=== PATIENT | male | born 2000 | race Caucasian/White ===

== ENCOUNTER 2020-03-09 15:26 | Emergency (ER) | payer MEDICAID ==
[~2020-03-09] VITALS: Ht 180.3 cm; Wt 63.6 kg
[2020-03-09 15:43] VITALS: BP 140/76
== END 2020-03-09 16:14 | disposition home or self-care (01) ==
LOC: ER 15:27
DX: B34.9 Viral infection, unspecified (principal); R11.2 Nausea with vomiting, unspecified; R50.9 Fever, unspecified
CPT/HCPCS: 99281; 99282

== ENCOUNTER 2021-02-06 09:43 | Emergency (ER) | payer MEDICAID ==
[~2021-02-06] VITALS: Ht 180.3 cm; Wt 61.4 kg
[2021-02-06 09:57] VITALS: BP 116/79
== END 2021-02-06 14:02 | disposition home or self-care (01) ==
LOC: ER 09:44
DX: U07.1 COVID-19 (principal); R09.89 Other specified symptoms and signs involving the circulatory and respiratory systems; R09.81 Nasal congestion; R05 Cough; R50.9 Fever, unspecified; F17.200 Nicotine dependence, unspecified, uncomplicated; Z72.89 Other problems related to lifestyle
CPT/HCPCS: 87635; 99283; C9803

== ENCOUNTER 2021-10-03 10:16 | Emergency (ER) | payer MEDICAID ==
[~2021-10-03] VITALS: Ht 180.3 cm; Wt 63.6 kg
--- NOTE | 2021-10-03 11:38 | NUR ---
dressing applied to suture removal site lt hand
== END 2021-10-03 12:01 | disposition home or self-care (01) ==
LOC: ER 10:17
DX: S41.112D Laceration without foreign body of left upper arm, subsequent encounter (principal); Z48.00 Encounter for change or removal of nonsurgical wound dressing; X58.XXXD Exposure to other specified factors, subsequent encounter
CPT/HCPCS: 99281

== ENCOUNTER 2025-03-24 16:17 | Emergency (ER) | payer MEDICAID ==
[~2025-03-24] VITALS: Ht 185.4 cm; Wt 70.0 kg
[2025-03-24 16:21] VITALS: BP 122/92; PULSE 105; RESP 16; TEMP 98.2; O2SAT 98
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
== END 2025-03-24 18:23 ==
LOC: ER 16:17
DX: S00.83XA Contusion of other part of head, initial encounter (principal); F17.200 Nicotine dependence, unspecified, uncomplicated; Z72.89 Other problems related to lifestyle; V89.9XXA Person injured in unspecified vehicle accident, initial encounter; Y93.89 Activity, other specified; Y92.89 Other specified places as the place of occurrence of the external cause; Y99.8 Other external cause status
CPT/HCPCS: 70450; 72125; 99284